=== PATIENT | female | born 1945 | race Asian ===

== ENCOUNTER → 2017-08-09 | Day surgery (SDC) | payer BC, MEDICARE ==
[2017-08-02 23:04] VITALS: BMI 20.1
[~2017-08-09] MED LIST: BENZOCAINE SPRAY 1 SPRAY CAN MUCOUS MEM ONE; IV FLUID CONTINUATION 1,000 ML IV ONE; MIDAZOLAM 2 MG/2 ML VIAL IV ONE; MIDAZOLAM 2 MG/2 ML VIAL ONE; fentaNYL (PF) 50 MCG/ML 2 ML AMP IV ONE; fentaNYL (PF) 50 MCG/ML 2 ML AMP ONE
[2017-08-09 11:50] VITALS: TEMP 98
[2017-08-09 12:16] VITALS: RESP 12
[2017-08-09 13:19] VITALS: BP 145/63; PULSE 63
--- NOTE | 2017-08-09 14:06 | ECHOT ---
TRANSESOPHAGEAL ECHOCARDIOGRAM DATE OF SERVICE: 08/09/2017 PERFORMING PHYSICIAN: Prudencio Rivera MD, Speech And Language Assistant. PROCEDURE PERFORMED: Transesophageal echocardiogram. INDICATION: This is a pleasant 71-year-old female patient who suffered recently from stroke and a transesophageal echocardiogram to rule out any cardiac source of embolization. SEDATION: Conscious sedation was performed using 2 mg of Versed. COMPLICATION: None. PROCEDURE DESCRIPTION: After obtaining an informed consent, explaining the procedure, benefits, risks, complications and alternatives, the patient was brought to the transesophageal echocardiogram suite. A pulse oximetry and heart rate monitors were attached to the patient prior to the procedure. The patient's throat was sprayed using lidocaine locally. Following that, the patient was turned into left lateral position. A bite guard was placed and the patient was then sedated with the above doses of Versed and fentanyl in divided doses. Following that, the transesophageal echocardiogram probe was advanced through the bite guard into the mid esophagus where 2-D echocardiogram images as well as color Doppler images of various cardiac structures were obtained. We evaluated the interatrial septum using 2-D echocardiogram, color Doppler, and contrast study. The procedure was completed. There were no complications. FINDINGS: The left ventricular dimension and systolic function appeared to be within normal limits. The ejection fraction appeared to be in the range of 60% with a normal wall motion. The right ventricle is of normal size and function. The left atrium appeared to be mildly dilated. The left atrial appendage appeared to be free from any thrombus. The interatrial septum appeared to be intact. The aortic valve is trileaflet valve with evidence of mild aortic regurgitation and no stenosis. The mitral valve seems to be normal with trace physiologic MR. Normal tricuspid valve and pulmonic valve. CONCLUSION: 1. Intact interatrial septum without any evidence of shunt. 2. Normal left atrial appendage without any evidence of thrombus. 3. Mild biatrial enlargement. 4. Normal left ventricular dimension and systolic function. 5. Trileaflet aortic valve without stenosis with mild regurgitation. 6. Normal mitral valve with trace mitral regurgitation. 7. Normal tricuspid valve and pulmonic valve. 8. POSTPROCEDURE MANAGEMENT: Maximize medical treatment. MMODL / IJN: [id number] /
== END ==
LOC: CATHCVL 07:37 → EDSEX 12:00
PROVIDERS: ATTEND Internal Medicine Interventional Cardiology
DX: I08.0 Rheumatic disorders of both mitral and aortic valves (principal); Z86.73 Personal history of transient ischemic attack (TIA), and cerebral infarction without residual deficits; E78.5 Hyperlipidemia, unspecified; Z79.899 Other long term (current) drug therapy
CPT/HCPCS: 93312; 93320; 93325; J2250; J3010